=== PATIENT | male | born 1965 | race Caucasian/White ===

== ENCOUNTER 2019-02-13 15:07 | Emergency (ER) | payer OTHER ==
[~2019-02-13] VITALS: Ht 188 cm; Wt 104.3 kg
[2019-02-15 01:06] LABS: HCV ANTIBODY 1.6 (0.0-0.9); HIV SCREEN 4TH GENERATION WRFX Non Reactive (Non Reactive)
== END 2019-02-13 15:55 | disposition home or self-care (01) ==
LOC: ER 15:07
DX: S50.811A Abrasion of right forearm, initial encounter (principal); Z77.21 Contact with and (suspected) exposure to potentially hazardous body fluids; W50.4XXA Accidental scratch by another person, initial encounter
CPT/HCPCS: 84460; 86317; 86703; 86803; 87340; 87389; 99283

== ENCOUNTER → 2019-03-29 | Outpatient (CLI) | payer OTHER, BC ==
[2019-03-31 02:07] LABS: HIV SCREEN 4TH GENERATION WRFX Non Reactive (Non Reactive)
== END | disposition home or self-care (01) ==
LOC: LAB SHORT 12:17 → LAB EV 12:17
PROVIDERS: Family Medicine
DX: Z20.9 Contact with and (suspected) exposure to unspecified communicable disease (principal)
CPT/HCPCS: 86803; 87389

== ENCOUNTER → 2019-05-25 | Outpatient (CLI) | payer OTHER, BC ==
[2019-05-26 05:08] LABS: HIV SCREEN 4TH GENERATION WRFX Non Reactive (Non Reactive)
== END | disposition home or self-care (01) ==
LOC: LAB EV 09:10 → LAB SHORT 09:10
PROVIDERS: Family Medicine
DX: Z20.9 Contact with and (suspected) exposure to unspecified communicable disease (principal)
CPT/HCPCS: 87389

== ENCOUNTER → 2019-08-26 | Outpatient (CLI) | payer OTHER, BC ==
[2019-08-27 04:07] LABS: HIV SCREEN 4TH GENERATION WRFX Non Reactive (Non Reactive)
== END | disposition home or self-care (01) ==
LOC: LAB SHORT 10:32 → LAB EV 10:32
PROVIDERS: Physician Assistant
DX: Z20.9 Contact with and (suspected) exposure to unspecified communicable disease (principal)
CPT/HCPCS: 84460; 86317; 86803; 87389

== ENCOUNTER 2020-09-23 13:47 | Emergency (ER) | payer OTHER, BC ==
[~2020-09-23] VITALS: Ht 188 cm; Wt 104.3 kg
== END 2020-09-23 15:59 | disposition home or self-care (01) ==
LOC: ER 13:47
DX: S39.012A Strain of muscle, fascia and tendon of lower back, initial encounter (principal)
CPT/HCPCS: 99282; A9270